=== PATIENT | male | born 1955 | race Hispanic/Latino ===

== ENCOUNTER 2021-12-16 12:14 | Outpatient (CLI) | payer OTHER | END 2021-12-16 12:15 | disposition home or self-care (01) | LOC: SCSMRI 12:14 | PROVIDERS: ATTEND Family Medicine | DX: S32.020G Wedge compression fracture of second lumbar vertebra, subsequent encounter for fracture with delayed healing (principal); M47.26 Other spondylosis with radiculopathy, lumbar region; M51.16 Intervertebral disc disorders with radiculopathy, lumbar region; M47.27 Other spondylosis with radiculopathy, lumbosacral region | CPT/HCPCS: 72148 ==

== ENCOUNTER 2022-08-11 11:59 | Outpatient (CLI) | payer OTHER ==
[2022-08-11 13:08] LABS: Mean Corpuscular HGB CONC 34.1 g/dL (32.0-36.0); Mean Corpuscular Hemoglobin 31.3 pg (27.0-33.0); Mean Corpuscular Volume 91.5 fl (81.2-95.1); Mean Platelet Volume 10.3 fl (7.4-10.4); Platelet Count 178 10x3/uL (150-450); RBC Distribution Width 12.7 % (11.5-14.5); Red Blood Cell (RBC) Count 5.44 10x6/uL (4.32-5.72)
[2022-08-11 13:28] LABS: PTT 27.7 sec (22.0-33.0); Prothrombin Time 10.5 sec (9.5-12.1)
[2022-08-11 13:32] LABS: Anion Gap 15 mmol/L (10-20); BUN (Urea Nitrogen) 16 mg/dL (8.4-25.7); Calc. Creatinine Clearance 0 mL/min (70-130); Carbon Dioxide 19 mmol/L (23-31); Chloride 106 mmol/L (98-107); Estimated GFR 80; Glucose 120 mg/dL (80-115); Potassium 4.4 mmol/L (3.5-5.1); Sodium 136 mmol/L (136-145)
== END 2022-08-11 12:00 | disposition home or self-care (01) ==
LOC: LABBT 11:59
PROVIDERS: ATTEND Neurological Surgery
DX: Z01.818 Encounter for other preprocedural examination (principal); M48.062 Spinal stenosis, lumbar region with neurogenic claudication; M48.56XA Collapsed vertebra, not elsewhere classified, lumbar region, initial encounter for fracture
CPT/HCPCS: 80048; 85027; 85610; 85730; 93005; 93010

== ENCOUNTER 2022-08-16 05:42 | Observation (INO) | payer OTHER ==
[2022-08-11 13:16] VITALS: BMI 39.1
[2022-08-16] MEDS ORDERED: Thrombin 5000 UNITS/5 ML VIAL ONE ×2 (06:11→11:31)
[2022-08-16] MEDS ORDERED: Vancomycin 1 GM VIAL ONE (06:11)
[2022-08-16] MEDS ORDERED: Bupivacaine HCl 0.5%/Epinephrine 1:200,000/PF 30 ml Vial ONE (06:11)
[2022-08-16] MEDS ORDERED: Fentanyl 250 MCG/5 ML VIAL ONE (06:15)
[2022-08-16] MEDS ORDERED: Dexmedetomidine 200 MCG/2 ML VIAL ONE (06:15)
[2022-08-16] MEDS ORDERED: SUGAMMADEX SODIUM 200 MG/2 ML VIAL ONE (06:15)
[2022-08-16] MEDS ORDERED: Albumin 5% 500 ML ONE (06:15)
[2022-08-16] MEDS ORDERED: Ondansetron PF 4 MG/2 ML Vial IVP PRN (06:32)
[2022-08-16] MEDS ORDERED: Acetaminophen 325 MG TAB PO PRN (06:32)
[2022-08-16] MEDS ORDERED: Mag-Al 1200 mg/1200 mg/30 ML UDCUP PO PRN (06:32)
[2022-08-16] MEDS ORDERED: Morphine 2 MG/ML VIAL SLOW IVP PRN (06:32)
[2022-08-16] MEDS ORDERED: Prochlorperazine 10 MG/2 ML VIAL IM PRN (06:32)
[2022-08-16] MEDS ORDERED: HYDROcodone/Acetaminophen 7.5/325 mg Tablet PO PRN (06:32)
[2022-08-16] MEDS ORDERED: diphenhydrAMINE 50 MG/ML VIAL IVP PRN (06:32)
[2022-08-16] MEDS ORDERED: Acetaminophen/Codeine 30-300mg Tablet PO PRN (06:32)
[2022-08-16] MEDS ORDERED: HYDROcodone/Acetaminophen 10/325 mg Tablet PO PRN (06:32)
[2022-08-16] MEDS ORDERED: tiZANidine HCl 4 MG TAB PO PRN (06:35)
[2022-08-16] MEDS ORDERED: CEFAZOLIN 2 GM VIAL ONE (06:47)
[2022-08-16] MEDS ORDERED: Sodium Chloride 0.9% 100 ML ONE (06:47)
[2022-08-16] MEDS ORDERED: Metoclopramide HCl 10 MG/2 ML VIAL ONE (07:00)
[2022-08-16] MEDS ORDERED: PROPOFOL 200 MG/20 ML VIAL ONE (07:00)
[2022-08-16] MEDS ORDERED: Dexamethasone 20 MG/5 ML VIAL ONE (07:00)
[2022-08-16] MEDS ORDERED: Rocuronium Bromide 10 MG/ML (10ML VIAL) ONE (07:00)
[2022-08-16] MEDS ORDERED: Vecuronium 10 MG VIAL ONE ×2 (07:00→10:37)
[2022-08-16] MEDS ORDERED: Ondansetron PF 4 MG/2 ML Vial ONE (07:00)
[2022-08-16] MEDS ORDERED: NEOSTIGMINE 3 MG/3 ML SYR 3 MG/3 ML SYRINGE ONE (07:00)
[2022-08-16] MEDS ORDERED: Ketorolac Tromethamine 30 MG/ML VIAL ONE (07:00)
[2022-08-16] MEDS ORDERED: GLYCOPYRROLATE/PF 0.2 MG/ML VIAL ONE (07:00)
[2022-08-16] MEDS ORDERED: Lidocaine 1% PF 5 ML VIAL ONE (07:00)
[2022-08-16] MEDS ORDERED: Linaclotide [Linzess] 290 MCG Capsule PO SCH (09:00)
[2022-08-16] MEDS ORDERED: Ondansetron HCl/PF 4 MG/2 ML Vial IVP PRN (12:39)
[2022-08-16] MEDS ORDERED: Morphine Sulfate 2 MG/ML SYRINGE SLOW IVP PRN (12:39)
[2022-08-16] MEDS ORDERED: HYDROmorphone 2 MG/ML VIAL SLOW IVP PRN (12:39)
[2022-08-16] MEDS ORDERED: Promethazine HCl 25 MG/ML VIAL IM PRN (12:39)
[2022-08-16] MEDS ORDERED: PACU-Morphine 4MG/ML VIAL SLOW IVP PRN (12:39)
[2022-08-16] MEDS ORDERED: fentaNYL 50 mcg/mL 1 mL Vial ONE (13:48)
[2022-08-16] MEDS: Sodium Chloride 0.9% 1,000 ML IV SCH ×2 (14:49→22:15)
[2022-08-16] MEDS: Lisinopril/Hydrochlorothiazide 10 mg/12.5 mg Tablet PO SCH (14:50)
[2022-08-16] MEDS: Empagliflozin 10 MG TAB PO SCH (14:50)
[2022-08-16] MEDS: Atorvastatin Calcium 20 MG TAB PO SCH (14:50)
[2022-08-16] MEDS: CEFAZOLIN 2 GM in Sodium Chloride 0.9% 100 ML IVPB SCH ×2 (15:31→22:15)
[2022-08-17] MEDS: Lisinopril/Hydrochlorothiazide 10 mg/12.5 mg Tablet PO SCH (10:28)
[2022-08-17] MEDS: Atorvastatin Calcium 20 MG TAB PO SCH (10:29)
[2022-08-17] MEDS: Empagliflozin 10 MG TAB PO SCH (11:34)
[2022-08-17] MEDS: Sodium Chloride 0.9% 1,000 ML IV SCH (13:25)
[2022-08-17 15:26] VITALS: BP 112/73; TEMP 98.2
== END 2022-08-17 15:40 | disposition home or self-care (01) ==
LOC: SDC 05:42 → SURG A 14:32
PROVIDERS: ADMIT Neurological Surgery; ATTEND Neurological Surgery
PROC: 01NB0ZZ Release Lumbar Nerve, Open Approach (ICD-10-PCS; principal; 2022-08-16)
PROC: 0SG30AJ Fusion of Lumbosacral Joint with Interbody Fusion Device, Posterior Approach, Anterior Column, Open Approach (ICD-10-PCS; 2022-08-16)
DX: M48.07 Spinal stenosis, lumbosacral region (principal); M48.062 Spinal stenosis, lumbar region with neurogenic claudication; M54.16 Radiculopathy, lumbar region; M54.17 Radiculopathy, lumbosacral region; M43.16 Spondylolisthesis, lumbar region; E78.00 Pure hypercholesterolemia, unspecified; E11.9 Type 2 diabetes mellitus without complications; I10 Essential (primary) hypertension; Z87.891 Personal history of nicotine dependence; Z79.84 Long term (current) use of oral hypoglycemic drugs; Z79.899 Other long term (current) drug therapy
CPT/HCPCS: 20930; 20936; 22633; 22840; 22853; 63047; 63052; 97110 ×2; 97116; 97535; C1713 ×2; C1768; C1776; C1889; J3010; J3490; P9045; J1100; J1885; J2272; J2405; J2704; J2765; J3370; J7050